=== PATIENT | male | born 1975 | race Caucasian/White ===

== ENCOUNTER 2017-07-26 08:42 | Inpatient (IN) | payer OTHER ==
[~2017-07-26] VITALS: Ht 180.3 cm; Wt 81.8 kg
[2017-07-26] VITALS (7 sets, daily range): BP systolic 96–144; BP diastolic 51–83; PULSE 57–148; RESP 14–18; TEMP 97.8–99.2; O2SAT 95–98
[~2017-07-26 08:42] MED LIST: CELE20TA PO; META800 PO; SIMV20 PO; TAB-TAB PO; WELL200T OR
[2017-07-26] MEDS ORDERED: LEVE250 PO (08:49)
[2017-07-26] MEDS ORDERED: SODIUM CHLOR 0.9% 1000 ML INJ 1,000 ML IV ONE ×2 (09:00→12:00)
--- NOTE | 2017-07-26 09:00 | PD ---
HPI Chief Complaint: Altered Mental Status Time Seen by Provider: 08:49 Travel History International Travel<30 days: No Contact w/Intl Traveler<30days: No Traveled to known affect area: No History of Present Illness HPI 41-year-old male was brought in by EMS for altered mental status. Patient was staying with a friend last night and was drinking alcohol yesterday. Patient's friend found the patient EMS was called. Disoriented and standing in the kitchen this morning. Patient was brought to the ED for evaluation. Patient has history of seizure and on Keppra. No seizure activity was witnessed. Patient denies any headache. Patient denies any chest pain or shortness of breath. Patient denies abdominal pain. Patient denies any focal weakness or numbness extremity. Patient has no complaint now. Patient denies any illicit drug abuse. Patient denies any nausea vomiting. Patient denies any coughing congestion. Patient denies any fever chills. 9:55 AM. Patient's mother call. Patient's mother states the patient is going through a divorce. Patient told his mother that he took 30 sleeping pills last night. Patient voiced suicidal ideation to his mother. 11:47 AM. Patient's ex- and patient's mother came to see the patient. Patient is on Keppra for seizure, Cymbalta for depression, simvastatin for hyperlipidemia and a medication for hypertension. Patient apparently took 30 pills of zolpidem unknown strength last night. PFSH Past Medical History Depression: Yes Cardiovascular Problems: No Genitourinary: No Musculoskeletal: No Neurologic: No Psychiatric: Yes Reproductive: No Respiratory: No Triglycerides - High: Yes (ON ZOCOR) Past Surgical History Other Surgery: No Social History Alcohol Use: Yes (daily.....beer) Tobacco Use: Yes (ppd) Substance Use: Yes (Currently ETOH is a problem; States Hx experimentation. ) Allergies-Medications (Allergen,Severity, Reaction): Coded Allergies: No Known Allergies (Verified Adverse Reaction, Unknown, 07/26/17) Reported Meds & Prescriptions Reported Meds & Active Scripts Active Reported Keppra (Levetiracetam) 250 Mg Tab 250 Mg PO BID Review of Systems General / Constitutional: No: Fever Eyes: No: Visual changes HENT: No: Headaches Cardiovascular: No: Chest Pain or Discomfort Respiratory: No: Shortness of Breath Gastrointestinal: No: Abdominal Pain Genitourinary: No: Dysuria Musculoskeletal: No: Pain Skin: No Rash Neurologic: No: Weakness Psychiatric: No: Depression Endocrine: No: Polydipsia Hematologic/Lymphatic: No: Easy Bruising Physical Exam Narrative GENERAL: Well-nourished, well-developed patient. SKIN: Focused skin assessment warm/dry. HEAD: Normocephalic. EYES: No scleral icterus. No injection or drainage. Mucous membrane is dry. NECK: Supple, trachea midline. No JVD or lymphadenopathy. CARDIOVASCULAR: Tachycardia rate and rhythm without murmurs, gallops, or rubs. RESPIRATORY: Breath sounds equal bilaterally. No accessory muscle use. GASTROINTESTINAL: Abdomen soft, non-tender, nondistended. MUSCULOSKELETAL: No cyanosis, or edema. BACK: Nontender without obvious deformity. No CVA tenderness. Neurologic exam: Patient is lethargic however answer questions appropriately. Patient moves all extremity well. No obvious focal neurologic deficit. Data Data Last Documented VS Vital Signs Date Time Temp Pulse Resp B/P (MAP) Pulse Ox O2 Delivery O2 Flow Rate FiO2 07/26/17 10:15 104 14 140/79 (99) 95 Room Air 07/26/17 08:45 98.4 Orders Orders Electrocardiogram (07/26/17 08:49) Complete Blood Count With Diff (07/26/17 08:49) Comprehensive Metabolic Panel (07/26/17 08:49) Creatine Kinase (Cpk) (07/26/17 08:49) Prothrombin Time / Inr (Pt) (07/26/17 08:49) Act Partial Throm Time (Ptt) (07/26/17 08:49) Urinalysis - C+S If Indicated (07/26/17 08:49) Thyroid Stimulating Hormone (07/26/17 08:49) Chest, Single Ap (07/26/17 08:49) Ct Brain W/O Iv Contrast(Rout) (07/26/17 08:49) Iv Access Insert/Monitor (07/26/17 08:49) Ecg Monitoring (07/26/17 08:49) Oximetry (07/26/17 08:49) Drug Screen, Random Urine (07/26/17 08:49) Alcohol (Ethanol) (07/26/17 08:49) Sodium Chlor 0.9% 1000 Ml Inj (Ns 1000 M (07/26/17 09:00) CKMB (07/26/17 09:15) CKMB% (07/26/17 09:15) Labs Laboratory Tests Test 07/26/17 09:15 07/26/17 11:15 White Blood Count 12.6 TH/MM3 Red Blood Count 4.46 MIL/MM3 Hemoglobin 14.4 GM/DL Hematocrit 41.3 % Mean Corpuscular Volume 92.7 FL Mean Corpuscular Hemoglobin 32.4 PG Mean Corpuscular Hemoglobin Concent 35.0 % Red Cell Distribution Width 11.8 % Platelet Count 499 TH/MM3 Mean Platelet Volume 8.5 FL Neutrophils (%) (Auto) 76.3 % Lymphocytes (%) (Auto) 16.5 % Monocytes (%) (Auto) 4.4 % Eosinophils (%) (Auto) 0.2 % Basophils (%) (Auto) 2.6 % Neutrophils # (Auto) 9.6 TH/MM3 Lymphocytes # (Auto) 2.1 TH/MM3 Monocytes # (Auto) 0.6 TH/MM3 Eosinophils # (Auto) 0.0 TH/MM3 Basophils # (Auto) 0.3 TH/MM3 CBC Comment DIFF FINAL Differential Comment Prothrombin Time 10.4 SEC Prothromb Time International Ratio 1.0 RATIO Activated Partial Thromboplast Time 24.5 SEC Blood Urea Nitrogen 16 MG/DL Creatinine 1.20 MG/DL Random Glucose 117 MG/DL Total Protein 7.7 GM/DL Albumin 4.2 GM/DL Calcium Level 8.5 MG/DL Alkaline Phosphatase 74 U/L Aspartate Amino Transf (AST/SGOT) 22 U/L Alanine Aminotransferase (ALT/SGPT) 36 U/L Total Bilirubin 0.4 MG/DL Sodium Level 137 MEQ/L Potassium Level 3.4 MEQ/L Chloride Level 101 MEQ/L Carbon Dioxide Level 25.3 MEQ/L Anion Gap 11 MEQ/L Estimat Glomerular Filtration Rate 66 ML/MIN Total Creatine Kinase 340 U/L Creatine Kinase MB 1.7 NG/ML Creatine Kinase MB % 0.5 % Thyroid Stimulating Hormone 3rd Gen 1.940 uIU/ML Ethyl Alcohol Level 96 MG/DL Urine Collection Type CLEAN CATCH Urine Color YELLOW Urine Turbidity CLEAR Urine pH 6.0 Urine Specific [place] 1.010 Urine Protein NEG mg/dL Urine Glucose (UA) NEG mg/dL Urine Ketones NEG mg/dL Urine Occult Blood MOD Urine Nitrite NEG Urine Bilirubin NEG Urine Urobilinogen 0.2 MG/DL Urine Leukocyte Esterase NEG Urine RBC 10-14 /hpf Urine Squamous Epithelial Cells 0-5 /hpf Microscopic Urinalysis Comment CULT NOT INDICATED Urine Collection Time 11:15 Urine Barbiturates Screen NEG Urine Amphetamines Screen NEG Urine Cocaine Screen NEG Urine Cannabinoids Screen NEG MDM Medical Decision Making Medical Screen Exam Complete: Yes Emergency Medical Condition: Yes Interpretation(s) 11:36 AM. Last Impressions Head CT 07/26/17848 Signed Impressions: Service Date/Time: Wednesday, July 26, 2017 09:01 - CONCLUSION: Normal examination. Vicente Li MD Chest X-Ray 07/26/17848 Signed Impressions: Service Date/Time: Wednesday, July 26, 2017 08:56 - CONCLUSION: Normal examination. Vicente Li MD 11:36 AM. EKG shows sinus tachycardia rate 141. Nonspecific ST-T wave change. 11:36 AM. CBC WBC 12.6. Hemoglobin 14.5 hematocrit 41.3. Platelet 499. 76 neutrophil. Potassium 3.4. Cardiac enzymes are normal. Total CK 340. Alcohol 96. UA is negative. Differential Diagnosis Differential diagnosis including substance induced mood disorder, seizure with postictal, electrolyte imbalance, dehydration, head injury. Narrative Course 41-year-old male with altered mental status. Patient was drinking alcohol yesterday. Patient told his mother that he overdosed on sleeping pill. Patient states that he was suicidal. History of seizure. Normal saline solution 2 L IV bolus. 11:47 AM. Patient is medically cleared for psychiatric evaluation. Patient will be transferred to the main hospital for psychiatric evaluation. Harrison Camarillo MD Jul 26, 2017 09:00
--- NOTE | 2017-07-26 09:12 | RADRPT ---
EXAM DATE/TIME: 07/26/2017 08:56 [facility] COMPARISON: No previous studies available for comparison. INDICATIONS : Short of breath. Altered mental status. MEDICAL HISTORY : Seizures. SURGICAL HISTORY : None. ENCOUNTER: Initial ACUITY: 2 days PAIN SCORE: 0/10 LOCATION: chest FINDINGS: A single view of the chest demonstrates the lungs to be symmetrically aerated without evidence of mas s, infiltrate or effusion. The cardiomediastinal contours are unremarkable. Osseous structures are intact. CONCLUSION: Normal examination. Vicente Li MD on July 26, 2017 at 9:09 Board Certified Radiologist. This report was verified electronically.
--- NOTE | 2017-07-26 09:21 | RADRPT ---
EXAM DATE/TIME: 07/26/2017 09:01 [facility] COMPARISON: CT BRAIN W/O CONTRAST, October 02, 2010, 4:22. INDICATIONS : Altered mental status. RADIATION DOSE: 39.94 CTDIvol (mGy) MEDICAL HISTORY : None SURGICAL HISTORY : None. ENCOUNTER: Initial ACUITY: 1 day PAIN SCALE: 0/10 LOCATION: cranial TECHNIQUE: Multiple contiguous axial images were obtained of the head. Using automated exposure control and adj ustment of the mA and/or kV according to patient size, radiation dose was kept as low as reasonably a chievable to obtain optimal diagnostic quality images. DICOM format image data is available electro nically for review and comparison. FINDINGS: CEREBRUM: The ventricles are normal for age. No evidence of midline shift, mass lesion, hemorrhage or acute in farction. No extra-axial fluid collections are seen. POSTERIOR FOSSA: The cerebellum and brainstem are intact. The 4th ventricle is midline. The cerebellopontine angle i s unremarkable. EXTRACRANIAL: The visualized portion of the orbits is intact. SKULL: The calvaria is intact. No evidence of skull fracture. CONCLUSION: Normal examination. Vicente Li MD on July 26, 2017 at 9:18 Board Certified Radiologist. This report was verified electronically.
[2017-07-26 09:36] LABS: AUTOMATED NEUTROPHIL # 9.6 TH/MM3 (1.8-7.7); BASOPHIL # 0.3 TH/MM3 (0-0.2); BASOPHIL % 2.6 % (0.0-2.0); EOSINOPHIL % 0.2 % (0.0-4.0); HEMATOCRIT 41.3 % (39.0-51.0); HEMOGLOBIN 14.4 GM/DL (13.0-17.0); LYMPH % 16.5 % (9.0-44.0); LYMPHOCYTE # 2.1 TH/MM3 (1.0-4.8); MEAN CELL VOLUME 92.7 FL (80.0-100.0); MEAN CORPUSCULAR HEMOGLOBIN 32.4 PG (27.0-34.0); MEAN PLATELET VOLUME 8.5 FL (7.0-11.0); MONO % 4.4 % (0.0-8.0); MONOCYTE # 0.6 TH/MM3 (0-0.9); NEUT % 76.3 % (16.0-70.0); PLATELET COUNT 499 TH/MM3 (150-450); RED BLOOD COUNT 4.46 MIL/MM3 (4.50-5.90); RED CELL DISTRIBUTION WIDTH 11.8 % (11.6-17.2); WHITE BLOOD COUNT 12.6 TH/MM3 (4.0-11.0)
[2017-07-26 09:39] LABS: PROTHROMBIN TIME - PATIENT 10.4 SEC (9.8-11.6)
[2017-07-26 09:54] LABS: CALCIUM 8.5 MG/DL (8.5-10.1)
[2017-07-26 09:55] LABS: ALBUMIN 4.2 GM/DL (3.4-5.0); BICARBONATE 25.3 MEQ/L (21.0-32.0); CHLORIDE 101 MEQ/L (98-107); GLUCOSE,RANDOM 117 MG/DL (74-106); SODIUM (NA) 137 MEQ/L (136-145)
[2017-07-26 09:58] LABS: ALT (GPT) 36 U/L (12-78); AST (GOT) 22 U/L (15-37); GLOMERULAR FILTRATION RATE 66 ML/MIN (>89)
[2017-07-26 09:59] LABS: TOTAL BILIRUBIN ADULT 0.4 MG/DL (0.2-1.0); TOTAL PROTEIN 7.7 GM/DL (6.4-8.2)
[2017-07-26 10:01] LABS: ALKALINE PHOSPHATASE 74 U/L (45-117)
[2017-07-26 10:05] LABS: BLOOD UREA NITROGEN 16 MG/DL (7-18)
[2017-07-26 11:20] LABS: BILIRUBIN, URINE NEG (NEG); BLOOD, URINE MOD (NEG); GLUCOSE,URINE NEG (NEG); KETONE, URINE NEG (NEG); NITRITE,URINE NEG (NEG); URINE COLOR YELLOW (YELLW/STRAW); URINE LEUKOCYTE ESTERASE NEG (NEG)
[2017-07-26 11:30] LABS: SQUAMOUS EPITHELIAL CELL URINE 0-5 /hpf (0-5)
[2017-07-26] MEDS ORDERED: SIMV5TAB3 PO (11:48)
[2017-07-26] MEDS ORDERED: DULO20 PO (11:48)
--- NOTE | 2017-07-26 13:12 | EKG ---
Date Performed: 07/26/2017 Time Performed: 08:48:25 PTAGE: 41 years EKG: SINUS TACHYCARDIA WITH SHORT [place] INTERVAL, POSSIBLE ATRIAL FLUTTER INCOMPLETE RIGHT BUNDLE B RANCH BLOCK NONSPECIFIC T-WAVE ABNORMALITY ABNORMAL RHYTHM ECG Compared to PREVIOUS TRACING rate is now faster, nonspecific ST T changes are now present PREVIOUS T RACIN08/25/2010 09.52 DOCTOR: Jermaine Cotto Interpretating Date/Time 07/26/2017 13:11:35
[2017-07-26] MEDS ORDERED: Cymbalta PO (16:50)
[2017-07-26] MEDS ORDERED: TEMA30CA PO (16:52)
[2017-07-26] MEDS ORDERED: LEVE500 PO (16:55)
[2017-07-26] MEDS ORDERED: LISI20TA3 PO (16:56)
[2017-07-26] MEDS ORDERED: AMLO10TA2 PO (16:57)
[2017-07-26] MEDS ORDERED: levETIRAcetam 500 MG TAB PO SCH (21:00)
[2017-07-27 02:32] VITALS: BP 135/77; PULSE 53; RESP 18; TEMP 98.4; O2SAT 97
[2017-07-27 06:48] VITALS: BP 129/63; PULSE 59; RESP 20; TEMP 96.9; O2SAT 98
[2017-07-27] MEDS ORDERED: LORazepam 0.5 MG TAB PO PRN (09:45)
[2017-07-27] MEDS ORDERED: LORazepam 2 MG/ML VIAL IM PRN ×2 (09:45)
[2017-07-27] MEDS ORDERED: MAGNESIUM HYDROXIDE SUSP 30 ML CUP PO PRN (09:45)
[2017-07-27] MEDS ORDERED: ALUMINUM/MAGNESIUM/SIMETH 30 ML CUP PO PRN (09:45)
--- NOTE | 2017-07-27 09:57 | HHI.HP ---
Provisional Diagnosis Admission Date [place] I. Adjustment disorder with depressed mood vs major depressive disorder, recurrent , severe, without psychosis, alcohol use disorder [place] II. Deferred [place] III. Hypertension Certification of Person's Competence To Provide Express and Informed Consent I have personally examined Seven BaileyJr , a person being served at [facility] on, Jul 27, 2017 09:41. Express and informed consent means consent voluntarily given in writing, by a competent person, after sufficient explanation and disclosure of the subject matter involved to enable the person to make a knowing and willful decision without any element of force, fraud, deceit, duress, or other form of constraint or coercion. This person is 18 years of age or older, is not now known to be incompetent to consent to treatment with a guardian advocate, and does not have a health care surrogate or proxy currently making medical treatment decisions. I have found this person to be one of the following: [] Competent to provide express and informed consent, as defined above, for voluntary admission to this facility and is competent to provide express and informed consent for treatment. He/she has the consistent capacity to make well reasoned, willful, and knowing decisions concerning his or her medical or mental health treatment. The person fully and consistently understands the purpose of the admission for examination/placement and is fully capable of personally exercising all rights assured [place] Incompetent to provide express and informed consent to voluntary admission, and this is incompetent to provide express and informed consent to treatment. The person must be transferred to involuntary status and a petition for a guardian advocate filed with the Circuit Court. [x] Refusing to provide express and informed consent to voluntary admission but is competent to provide express and informed consent for treatment. The person must be discharged or transferred to involuntary status. Form shall be completed within 24 hours of a person's arrival at the receiving facility and filed in the clinical record of each person: 1. Admitted on a voluntary basis 2. Permitted to provide express and informed consent to his/her own treatment 3. Allowed to transfer from involuntary to voluntary status 4. Prior to permitting a person to consent to his or her own treatment after having been previously found incompetent to consent to treatment. History of Present Illness Capacity: Has Capacity HPI The patient is a 41-year-old man, domiciled with a friend and [place], employed, but , with psychiatric history of depression , alcohol use disorder, 1 previous psychiatric hospitalization in 2011 here at [facility], documentation review, one suicide attempt by overdosing, he is on Cymbalta 60 mg daily prescribed by PCP, he has medical history of seizures and hypertension, who was brought in by EMS for altered mental status. Patient was staying with a friend last night and was drinking alcohol yesterday. Patient's friend found the patient EMS was called. Disoriented and standing in the kitchen this morning. Patient was brought to the ED for evaluation. No seizure activity was witnessed. 9:55 AM. Patient's mother call. Patient's mother states the patient is going through a divorce. Patient told his mother that he took 30 sleeping pills last night. Patient voiced suicidal ideation to his mother at 11:47 AM. Patient apparently took 30 pills of zolpidem unknown strength last night. On psychiatric evaluation today patient is calm, superficially cooperative. Patient reports that he has been very stressed going through divorce. He states that last night he was just very depressed, under the influence of alcohol, and he overdosed "just to go to sleep, but I was not thinking and to be honest". During the evaluation patient seems to be minimizing symptomatology of depression, he seems to be objectively depressed, with flat affect, tearful at some point of the interview. Patient is contributory at some point he states that he took 30 pills and minutes later he says that he took 4. At this moment the patient denies suicidal enemas ideation, he denies visual and auditory hallucinations. The patient is concrete , goal-directed, logical, coherent and relevant. The patient is oriented 3. He does report that in the past when he has been under stress he had overdosed. In 2010 after the of his father he feels hopeless, helpless, very sad and he overdose and ended hospitalized here at [facility]. The patient denies the use of illegal drugs, he reports that he uses alcohol occasionally. He denies withdrawal and DTs in the past, but at the same time he states that he is participating in AA meetings. Review of Systems Constitutional: DENIES: Diaphoretic episodes, Fatigue, Fever, Weight gain, Weight loss, Chills, Dizziness, Change in appetite, Night Sweats Endocrine: DENIES: Heat/cold intolerance, Polydipsia, Polyuria, Polyphagia Eyes: DENIES: Blurred vision, Diplopia, Eye inflammation, Eye pain, Vision loss , Photosensitivity, Double Vision Ears, nose, mouth, throat: DENIES: Tinnitus, Hearing loss, Vertigo, Nasal discharge, Oral lesions, Throat pain, Hoarseness, Ear Pain, Running Nose, Epistaxis, Sinus Pain, Toothache, Odynophagia Respiratory: DENIES: Apneas, Cough, Snoring, Wheezing, Hemoptysis, Sputum production, Shortness of breath Cardiovascular: DENIES: Chest pain, Palpitations, Syncope, Dyspnea on Exertion , PND, Lower Extremity Edema, Orthopnea, Claudication Gastrointestinal: DENIES: Abdominal pain, Black stools, Bloody stools, Constipation, Diarrhea, Nausea, Vomiting, Difficulty Swallowing, Anorexia Genitourinary: DENIES: Sexual dysfunction, Urinary frequency, Urinary incontinence, Urgency, Hematuria, Dysuria, Nocturia, Penile Discharge, Testicular Pain, Testicular Swelling Musculoskeletal: DENIES: Joint pain, Muscle aches, Stiffness, Joint Swelling, Back pain, Neck pain Integumentary: DENIES: Abnormal pigmentation, Nail changes, Pruritus, Rash Hematologic/lymphatic: DENIES: Bruising, Lymphadenopathy Immunologic/allergic: DENIES: Eczema, Urticaria Neurologic: DENIES: Abnormal gait, Headache, Localized weakness, Paresthesias, Seizures, Speech Problems, Tremor, Poor Balance Psychiatric: COMPLAINS OF: Suicidal Ideation, DENIES: Anxiety, Confusion, Mood changes, Depression, Hallucinations, Agitation, Homicidal Ideation, Delusions Past Psych History Violence risk - self (6 mos) Increased Substance Abuse History Drugs/Alcohol past 12 months Patient reports occasional use of alcohol, he participates in AA meetings, denies the use of illegal drug Past Family Social History Coded Allergies: No Known Allergies (Verified Adverse Reaction, Unknown, 07/26/17) Reported Medications Amlodipine (Amlodipine) 10 Mg Tab, 10 MG PO DAILY for Blood Pressure Management , #30 TAB 0 Refills 07/26/17 Lisinopril-Hctz (Lisinopril-Hctz) 20-25 Mg Tab, 1 TAB PO DAILY for Blood Pressure Management, #30 TAB 0 Refills 07/26/17 Levetiracetam (Keppra) 500 Mg Tab, 500 MG PO BID for Control Seizures, #60 TAB 0 Refills 07/26/17 Temazepam (Temazepam) 30 Mg Cap, 30 MG PO HS, #30 CAP 0 Refills 07/26/17 [Cymbalta ] No Conflict Check, 60 MG PO DAILY 07/26/17 Discontinued Reported Medications Simvastatin (Simvastatin) 5 Mg Tab, 0 PO DAILY for Cholesterol Management, #30 TAB 0 Refills 07/26/[address] (Cymbalta DR) 20 Mg Capdr, 0 PO DAILY, #30 CAP 0 Refills 07/26/17 Levetiracetam (Keppra) 250 Mg Tab, 250 MG PO BID for Control Seizures, #60 TAB 0 Refills 07/26/17 Current Medications Medications (Trade) Dose Ordered Sig/Boubacar Route Start Time Stop Time Status Last Admin (Norvasc) 10 mg DAILY PO 07/27/17 09:00 (Keppra) 500 mg Q12HR PO 07/26/17 21:00 07/26/17 21:00 (Restoril) 30 mg HS PRN PO 07/26/17 18:00 Family Psych History No family psychiatric history Social History Patient was born and raised [place], he lives in [place] with a friend , he is but , unemployed, his highest level of education is high school Patient's Strengths (min. 2) Verbal communication Physical Exam No tremors, no EPS, no withdrawal symptoms, no psychomotor agitation, some psychomotor retardation noted Vital Signs Vital Signs Date Time Temp Pulse Resp B/P (MAP) Pulse Ox O2 Delivery O2 Flow Rate FiO2 07/27/17 06:48 96.9 59 20 129/63 (85) 98 Room Air Lab Results Test 07/26/17 11:15 Urine Collection Type CLEAN CATCH Urine Color YELLOW Urine Turbidity CLEAR Urine pH 6.0 Urine Specific [place] 1.010 Urine Protein NEG mg/dL Urine Glucose (UA) NEG mg/dL Urine Ketones NEG mg/dL Urine Occult Blood MOD Urine Nitrite NEG Urine Bilirubin NEG Urine Urobilinogen 0.2 MG/DL Urine Leukocyte Esterase NEG Urine RBC 10-14 /hpf Urine Squamous Epithelial Cells 0-5 /hpf Microscopic Urinalysis Comment CULT NOT INDICATED Urine Collection Time 11:15 Urine Opiates Screen NEG Urine Barbiturates Screen NEG Urine Amphetamines Screen NEG Urine Benzodiazepines Screen NEG Urine Cocaine Screen NEG Urine Cannabinoids Screen NEG Mental Status Examination Appearance: Appropriate Consciousness: Alert Orientation: x4 Motor Activity: Normal gait Speech: Unremarkable Language: Adequate Fund of Knowledge: Adequate Attention and Concentration: Adequate Memory: Unremarkable Mood: Appropriate Affect: Appropriate Thought Process & Associations: Intact Thought Content: Appropriate Hallucination Type: None Delusion Type: None Suicidal Ideation: Yes Suicidal Plan: No Suicidal Intention: No Homicidal Ideation: No Homicidal Plan: No Homicidal Intention: No Insight: Poor Judgment: Poor Assessment & Plan Problem List: (1) Adjustment disorder with depressed mood ICD Codes: F43.21 - Adjustment disorder with depressed mood Assessment & Plan: On psychiatric evaluation I find a patient that is calm, just superficially cooperative, minimizing symptomatology of depression and recent suicide attempt, falling in contradictions regarding the amount of pills that he took to overdose. Patient reports that he has been very stressed, overwhelmed and depressed due to the process of divorce that he is going through. No collateral information could be contacted at this moment from his mother or ex-, who initiated the Elder act. Patient has history of depression, suicide attempts in the past in the context of being overwhelmed. Patient has an increased risk of danger to self at this moment he will be admitted for psychiatric stabilization and safety. We will restart his Cymbalta 60 mg, also restart his medication for seizures and hypertension, Keppra 500 mg twice daily, amlodipine 10 mg, lisinopril 20 mg. Patient will be transferred to 2700 unit. lithography contact worker intervention for psychosocial assessment, collateral information, individual and group therapies, also for the coordination of a safe discharge. Assessment & Plan Estimated LOS: Jose Luis Sherman MD Jul 27, 2017 09:57
[2017-07-27] MEDS ORDERED: ACETAMINOPHEN 325 MG TAB PO PRN (10:00)
[2017-07-27 10:15] VITALS: BP 154/76; PULSE 63; RESP 18; TEMP 98.2
[2017-07-27] MEDS ORDERED: CYMB60CA PO (10:29)
[2017-07-27] MEDS: NICOTINE 21 MG/24 HR PATCH T-DERMAL SCH (11:00)
[2017-07-27] MEDS: LISINOPRIL 20 MG TAB PO SCH (13:35)
[2017-07-27] MEDS: levETIRAcetam 500 MG TAB PO SCH ×2 (13:36→22:18)
[2017-07-27] MEDS: HYDROCHLOROTHIAZIDE 25 MG TAB PO SCH (13:46)
[2017-07-27 17:54] VITALS: BP 108/64; PULSE 63; RESP 18; TEMP 97.4; O2SAT 98
[2017-07-27] MEDS: TEMAZEPAM 15 MG CAP PO PRN (22:18)
[2017-07-28 06:13] VITALS: BP 125/73; PULSE 54; RESP 21; TEMP 98.4; O2SAT 98
[2017-07-28 07:24] LABS: BLOOD UREA NITROGEN 15 MG/DL (7-18); CALCIUM 8.6 MG/DL (8.5-10.1); CHLORIDE 105 MEQ/L (98-107); CHOLESTEROL 169 MG/DL (120-200); CREATININE 0.88 MG/DL (0.60-1.30); GLOMERULAR FILTRATION RATE 95 ML/MIN (>89); GLUCOSE,RANDOM 94 MG/DL (74-106); SODIUM (NA) 142 MEQ/L (136-145)
[2017-07-28 07:27] LABS: CHOLESTEROL/ HDL RATIO 3.02 RATIO; HDL CHOLESTEROL 55.8 MG/DL (40.0-60.0); LDL CHOLESTEROL 83 MG/DL (0-99); TRIGLYCERIDES 150 MG/DL (42-150)
[2017-07-28] MEDS: HYDROCHLOROTHIAZIDE 25 MG TAB PO SCH (08:54)
[2017-07-28] MEDS: levETIRAcetam 500 MG TAB PO SCH ×2 (08:54→21:13)
[2017-07-28] MEDS: NICOTINE 21 MG/24 HR PATCH T-DERMAL SCH (08:54)
[2017-07-28] MEDS: DULoxetine HCl DR 60 MG CAP PO SCH (08:54)
[2017-07-28] MEDS: LISINOPRIL 20 MG TAB PO SCH (08:54)
[2017-07-28] MEDS: LORazepam 1 MG TAB PO PRN (10:38)
--- NOTE | 2017-07-28 10:39 | HHI.PYPN ---
Subjective Remarks Reviewed electronic medical records discussed case with staff. Patient reports that he slept well has a good appetite. Denies suicidal or homicidal ideations and auditory or visual hallucinations. His mood is good his affect is euthymic. Mental Status Examination Appearance: Appropriate Consciousness: Alert Orientation: x4 Motor Activity: Normal gait Speech: Unremarkable Language: Adequate Fund of Knowledge: Adequate Attention and Concentration: Adequate Memory: Unremarkable Mood: Appropriate Affect: Appropriate Thought Process & Associations: Intact Thought Content: Appropriate Hallucination Type: None Delusion Type: None Suicidal Ideation: Yes Suicidal Plan: No Suicidal Intention: No Homicidal Ideation: No Homicidal Plan: No Homicidal Intention: No Insight: Poor Judgment: Poor Results Labs Test 07/28/17 06:01 Blood Urea Nitrogen 15 MG/DL Creatinine 0.88 MG/DL Random Glucose 94 MG/DL Calcium Level 8.6 MG/DL Sodium Level 142 MEQ/L Potassium Level 3.8 MEQ/L Chloride Level 105 MEQ/L Carbon Dioxide Level 29.0 MEQ/L Anion Gap 8 MEQ/L Estimat Glomerular Filtration Rate 95 ML/MIN Triglycerides Level 150 MG/DL Cholesterol Level 169 MG/DL LDL Cholesterol 83 MG/DL HDL Cholesterol 55.8 MG/DL Cholesterol/HDL Ratio 3.02 RATIO Vitals/IOs Vital Signs Date Time Temp Pulse Resp B/P (MAP) Pulse Ox O2 Delivery O2 Flow Rate FiO2 07/28/17 06:13 98.4 54 21 125/73 (90) 98 07/27/17 06:48 Room Air Assessment & Plan Problem List: (1) Adjustment disorder with depressed mood ICD Codes: F43.21 - Adjustment disorder with depressed mood Assessment & Plan Estimated LOS: Continue with current treatment plan. Attending psychiatrist will reevaluate tomorrow. Days Justification for Cont. Inpt. Moving this patient to a lower level of care would likely result in decompensation. Tiffany Loaiza Jul 28, 2017 10:39
[2017-07-28 13:29] LABS: HEMOGLOBIN A1C 5.3 % (4.3-6.0)
[2017-07-28 17:41] VITALS: BP 120/68; PULSE 76; RESP 18; TEMP 97.6; O2SAT 98
[2017-07-28] MEDS: TEMAZEPAM 15 MG CAP PO PRN (21:13)
[2017-07-29 06:30] VITALS: BP 115/62; PULSE 57; RESP 17; TEMP 98; O2SAT 100
[2017-07-29] MEDS: levETIRAcetam 500 MG TAB PO SCH ×2 (09:00→21:09)
[2017-07-29] MEDS: LISINOPRIL 20 MG TAB PO SCH (09:00)
[2017-07-29] MEDS: DULoxetine HCl DR 60 MG CAP PO SCH (09:00)
[2017-07-29] MEDS: HYDROCHLOROTHIAZIDE 25 MG TAB PO SCH (09:00)
[2017-07-29] MEDS: NICOTINE 21 MG/24 HR PATCH T-DERMAL SCH (09:00)
--- NOTE | 2017-07-29 09:32 | PD.TTN ---
Patient Problems 1. Discharge planning 2. Medication compliance 3. Knowledge deficit 4. Lack of coping skills Progress Toward Goals Provider Present: Dr. Alcides Dimas Provider Input: New pt, will see this am. Psychiatric Counselors Present: Nish Prasad Jr., [facility] Psych Therapist Input: Pt presents as "minimizing" signficant social issues including recent infedility on the part of his . Pt is at moderate to high risk for suicide and homocide. Staff needs to gather collateral before considering discharge. Nish Prasad Jr, [employer] SUPERVISOR Jul 29, 2017 09:32
[2017-07-29 15:12] VITALS: BP 107/67; PULSE 65; RESP 18; TEMP 99.1; O2SAT 100
[2017-07-29] MEDS: LORazepam 1 MG TAB PO PRN (16:53)
[2017-07-29] MEDS: TEMAZEPAM 15 MG CAP PO PRN (21:12)
--- NOTE | 2017-07-29 22:12 | PD.PSY.CON ---
Provisional Diagnosis Admission Date Jul 27, 2017 at 09:41 Yawkey I. Adjustment disorder with depressed mood vs major depressive disorder, recurrent , severe, without psychosis, alcohol use disorder Yawkey II. Deferred Yawkey III. Hypertension History of Present Illness Service Psychiatry Consult Requested By Dr. Frausto Reason for Consult Second opinion Primary Care Physician Unknown HPI The patient is a 41-year-old man, domiciled with a friend and [place], employed, but , with psychiatric history of depression , alcohol use disorder, 1 previous psychiatric hospitalization in 2010 here at [facility], documentation review, one suicide attempt by overdosing, he is on Cymbalta 60 mg daily prescribed by PCP, he has medical history of seizures and hypertension, who was brought in by EMS for altered mental status. Patient was staying with a friend last night and was drinking alcohol yesterday. Patient's friend found the patient EMS was called. Disoriented and standing in the kitchen this morning. Patient was brought to the ED for evaluation. No seizure activity was witnessed. 9:55 AM. Patient's mother call. Patient's mother states the patient is going through a divorce. Patient told his mother that he took 30 sleeping pills last night. Patient voiced suicidal ideation to his mother at 11:47 AM. Patient apparently took 30 pills of zolpidem unknown strength last night. On psychiatric evaluation today patient is calm, superficially cooperative. Patient reports that he has been very stressed going through divorce. He states that last night he was just very depressed, under the influence of alcohol, and he overdosed "just to go to sleep, but I was not thinking and to be honest". During the evaluation patient seems to be minimizing symptomatology of depression, he seems to be objectively depressed, with flat affect, tearful at some point of the interview. Patient is contributory at some point he states that he took 30 pills and minutes later he says that he took 4. At this moment the patient denies suicidal enemas ideation, he denies visual and auditory hallucinations. The patient is concrete , goal-directed, logical, coherent and relevant. The patient is oriented 3. He does report that in the past when he has been under stress he had overdosed. In 2010 after the of his father he feels hopeless, helpless, very sad and he overdose and ended hospitalized here at [facility]. The patient denies the use of illegal drugs, he reports that he uses alcohol occasionally. He denies withdrawal and DTs in the past, but at the same time he states that he is participating in AA meetings. 07/29/17 - Second opinion Patient is a 41 y/o man, domiciled with friend in [place], employed, , with a past psychiatric history of depression, alcohol use disorder, 1 previous psychiatric admission in 2010, 1 previous suicide attempt via overdose, past medical history significant for seizure disorder, hypertension, who was brought in due to altered mental status in the context of recent suicide attempt via overdose with 30 tablets of zolpidem which patient was admitted to the inpatient psychiatry unit for further evaluation and management. Patient was found sitting in hospital bed noted B, cooperative. Patient states that he did not try to attempt to commit suicide over that he wanted to sleep but was able to recall recent stressors to include having received a photograph of his with another man and states that it was this other person that had sent the patient to [facility] which had really upset him. Patient at this time states that he does not have any thoughts of wanting to hurt the other individual and states believing that this other man is no longer in his home or involved with his and has hopes of reconciling with and returning to back to his job soon. Patient was advised that patient will require further observation and adjustment of treatment due to recent suicide attempt which he acknowledged. Patient reports feeling well denies any physical complaints at this time denies any manic or psychotic symptoms, denies any perceptional disturbances or delusions. Information from staff reported that patient's [id number] had called to provide information stating that patient's continues to be in contact with the other individual, states that patient is likely unable to return back to work due to history of problems and is employed and states that patient's 's unlikely to return back to with the patient and is concerned about how patient would react or perceive current circumstances. Collateral contact: Khushbu Weber [phone] ([id number]) Past Family Social History Coded Allergies: No Known Allergies (Verified Allergy, Unknown, 07/27/17) Reported Medications Duloxetine DR (Cymbalta DR) 60 Mg Capdr, 60 MG PO DAILY, #30 CAP 0 Refills 07/27/17 Amlodipine (Amlodipine) 10 Mg Tab, 10 MG PO DAILY for Blood Pressure Management , #30 TAB 0 Refills 07/26/17 Lisinopril-Hctz (Lisinopril-Hctz) 20-25 Mg Tab, 1 TAB PO DAILY for Blood Pressure Management, #30 TAB 0 Refills 07/26/17 Levetiracetam (Keppra) 500 Mg Tab, 500 MG PO BID for Control Seizures, #60 TAB 0 Refills 07/26/17 Temazepam (Temazepam) 30 Mg Cap, 30 MG PO HS, #30 CAP 0 Refills 07/26/17 Discontinued Reported Medications Simvastatin (Simvastatin) 5 Mg Tab, 0 PO DAILY for Cholesterol Management, #30 TAB 0 Refills 07/26/[address] (Cymbalta DR) 20 Mg Capdr, 0 PO DAILY, #30 CAP 0 Refills 07/26/17 Levetiracetam (Keppra) 250 Mg Tab, 250 MG PO BID for Control Seizures, #60 TAB 0 Refills 07/26/17 Current Medications Medications (Trade) Dose Ordered Sig/Boubacar Route Start Time Stop Time Status Last Admin (Restoril) 30 mg HS PRN PO 07/26/17 18:00 07/29/17 21:12 (Ativan) 1 mg Q6H PRN PO 07/27/17 09:45 07/29/17 16:53 (Ativan Inj) 1 mg Q6H PRN IM 07/27/17 09:45 (Tylenol) 650 mg Q4H PRN PO 07/27/17 10:00 (Milk Of Magnesia Liq) 30 ml DAILY PRN PO 07/27/17 09:45 (Mag-Al Plus Susp Liq) 30 ml Q6H PRN PO 07/27/17 09:45 (Habitrol 21 Mg Patch.24 Hr) 1 patch DAILY T-DERMAL 07/27/17 11:00 07/29/17 09:00 (Norvasc) 10 mg DAILY PO 07/27/17 10:00 07/29/17 09:00 (Keppra) 500 mg BID PO 07/27/17 10:00 07/29/17 21:09 (Prinivil) 20 mg DAILY PO 07/27/17 11:00 07/29/17 09:00 (Cymbalta Dr) 60 mg DAILY PO 07/28/17 09:00 07/29/17 09:00 (Hydrodiuril) 25 mg DAILY PO 07/27/17 11:00 07/29/17 09:00 Patient's Strengths (min. 2) Verbal communication Physical Exam Vital Signs Vital Signs Date Time Temp Pulse Resp B/P (MAP) Pulse Ox O2 Delivery O2 Flow Rate FiO2 07/29/17 15:12 99.1 65 18 107/67 (80) 100 07/27/17 06:48 Room Air Mental Status Examination Appearance: Appropriate Consciousness: Alert Orientation: x4 Motor Activity: Normal gait Speech: Unremarkable Language: Adequate Fund of Knowledge: Adequate Attention and Concentration: Adequate Memory: Unremarkable Mood: Appropriate Affect: Appropriate Thought Process & Associations: Intact Thought Content: Appropriate Hallucination Type: None Delusion Type: None Suicidal Ideation: Yes Suicidal Plan: No Suicidal Intention: No Homicidal Ideation: No Homicidal Plan: No Homicidal Intention: No Insight: Poor Judgment: Poor Assessment & Plan Problem List: (1) Adjustment disorder with depressed mood ICD Codes: F43.21 - Adjustment disorder with depressed mood Assessment & Plan I have seen and examined this patient, reviewed the documentation, discussed personally with Dr. Frausto, and I agree and concur with his assessment and plan. Patient this time appears to be minimizing recent impact of current psychosocial stressors to include separation from , romantically involved with another individual. We will continue to monitor mood and behavior , continue current treatment. Treatment team to continue to obtain more collateral information from patient's . Discharge planning in progress. Patient's [id number], Khushbu Weber [phone] Discharge Planning To be determined. Chester Dimas MD Jul 29, 2017 22:12
[2017-07-30 05:58] VITALS: BP 104/60; PULSE 54; RESP 17; TEMP 97.8; O2SAT 100
[2017-07-30 06:12] VITALS: BP 104/60; PULSE 54; RESP 17; TEMP 97.8; O2SAT 100
[2017-07-30] MEDS: NICOTINE 21 MG/24 HR PATCH T-DERMAL SCH ×2 (08:03→15:15)
[2017-07-30] MEDS: HYDROCHLOROTHIAZIDE 25 MG TAB PO SCH (08:03)
[2017-07-30] MEDS: LISINOPRIL 20 MG TAB PO SCH (08:03)
[2017-07-30] MEDS: levETIRAcetam 500 MG TAB PO SCH ×2 (08:03→21:13)
[2017-07-30] MEDS: DULoxetine HCl DR 60 MG CAP PO SCH (08:04)
[2017-07-30] MEDS: LORazepam 1 MG TAB PO PRN (15:18)
--- NOTE | 2017-07-30 17:31 | HHI.PYPN ---
Subjective Remarks Patient seen for follow-up, chart reviewed. Discussion with nursing staff reported that the patient compliant with medications, no behavioral issues. Patient was found in dayroom, calm and cooperative. Patient states that his mood has been "good", sleeping well, denies any suicidal or homicidal ideations. Patient states that he has no thoughts of wanting to harm the individual who recently had been involved with , stating "I'm not going to do anything, I'll just move on". Patient continues to endorse that he is able to return to work, stay with his friend and that he will work things out with his . When asked what he will do if things do not belt turner the way he would like he states that he will continue to work and save up for his own home. Collateral information obtained by theraipist from patient's stated that there is no ongoing reconciliation at this time. Review of Systems Except as stated in HPI: all other systems reviewed are Neg Mental Status Examination Appearance: Appropriate Consciousness: Alert Orientation: x4 Motor Activity: Normal gait Speech: Unremarkable Language: Adequate Fund of Knowledge: Adequate Attention and Concentration: Adequate Memory: Unremarkable Mood: Appropriate Affect: Appropriate Thought Process & Associations: Intact Thought Content: Appropriate Hallucination Type: None Delusion Type: None Suicidal Ideation: Yes Suicidal Plan: No Suicidal Intention: No Homicidal Ideation: No Homicidal Plan: No Homicidal Intention: No Insight: Poor Judgment: Poor Results Vitals/IOs Vital Signs Date Time Temp Pulse Resp B/P (MAP) Pulse Ox O2 Delivery O2 Flow Rate FiO2 07/30/17 06:12 97.8 54 17 104/60 (75) 100 07/27/17 06:48 Room Air Intake and Output 07/30/17 07/30/17 07/31/17 08:00 16:00 00:00 Intake Total 360 ml Balance 360 ml Assessment & Plan Problem List: (1) Adjustment disorder with depressed mood ICD Codes: F43.21 - Adjustment disorder with depressed mood Assessment & Plan Patient continues to deny and depressive symptoms and continues to minimize recent events. There is continued concern of the reality of his relationship with his in that he believes they are reconciling. Will continue to to monitor mood and behavior, continue current treatment. Discharge planning in progress. Justification for Cont. Inpt. At risk for further deompensation at lower level of care. Chester Dimas MD July 30, 2017 17:31
[2017-07-30 18:39] VITALS: BP 120/65; PULSE 89; RESP 18; TEMP 98.2; O2SAT 96
[2017-07-30] MEDS: TEMAZEPAM 15 MG CAP PO PRN (21:56)
[2017-07-31 06:20] VITALS: BP 120/58; PULSE 69; RESP 18; TEMP 97.6; O2SAT 99
[2017-07-31] MEDS: HYDROCHLOROTHIAZIDE 25 MG TAB PO SCH (09:32)
[2017-07-31] MEDS: LISINOPRIL 20 MG TAB PO SCH (09:32)
[2017-07-31] MEDS: levETIRAcetam 500 MG TAB PO SCH ×2 (09:32→21:11)
[2017-07-31] MEDS: DULoxetine HCl DR 60 MG CAP PO SCH (09:32)
[2017-07-31] MEDS: NICOTINE 21 MG/24 HR PATCH T-DERMAL SCH (09:32)
--- NOTE | 2017-07-31 13:19 | PD.TTN ---
Patient Problems 1. Discharge planning 2. Medication compliance 3. Knowledge deficit 4. Lack of coping skills Progress Toward Goals Provider Present: Dr. Alcides Dimas Provider Input: New pt, will see this am. 07/31 Pt continues to minimize, BA court tomorrow morning. Psychiatric Counselors Present: Nish Prasad Jr., [facility] Psych Therapist Input: Pt presents as "minimizing" signficant social issues including recent infedility on the part of his . Pt is at moderate to high risk for suicide and homocide. Staff needs to gather collateral before considering discharge. 07/31 Pt continues to downplay the severity of recent behaviors, and is in denial of his current relationship with his . Occupational Therapist Input: 07/31 Attends group Nish Prasad Jr, MIS SPECIALIST July 31, 2017 13:19
[2017-07-31] MEDS: LORazepam 1 MG TAB PO PRN (17:34)
[2017-07-31 17:54] VITALS: BP 122/58; PULSE 61; RESP 18; TEMP 97.1; O2SAT 99
[2017-07-31] MEDS: TEMAZEPAM 15 MG CAP PO PRN (21:12)
--- NOTE | 2017-07-31 22:18 | HHI.PYPN ---
Subjective Remarks Patient seen for follow up; chart reviewed. Discussion with nursing staff reported that the patient feeling better, regretful about recent suicide attempt. Patient was found participating in group, calm, cooperative with interview with promotion writer and counselor/therapist. Patient states that he spoke with his employer and will continue to have a job. He was proposed the recommendation of participating in sober living which he agreed with and mentioned wanting to inquire about this for some time. He reports having spoken to his recently which he states went well. He agrees to sober living and plans on contacting the facilities today. Review of Systems Except as stated in HPI: all other systems reviewed are Neg Mental Status Examination Appearance: Appropriate Consciousness: Alert Orientation: x4 Motor Activity: Normal gait Speech: Unremarkable Language: Adequate Fund of Knowledge: Adequate Attention and Concentration: Adequate Memory: Unremarkable Mood: Appropriate Affect: Appropriate Thought Process & Associations: Intact Thought Content: Appropriate Hallucination Type: None Delusion Type: None Suicidal Ideation: No Suicidal Plan: No Suicidal Intention: No Homicidal Ideation: No Homicidal Plan: No Homicidal Intention: No Insight: Fair Judgment: Impulsive Results Vitals/IOs Vital Signs Date Time Temp Pulse Resp B/P (MAP) Pulse Ox O2 Delivery O2 Flow Rate FiO2 07/31/17 17:54 97.1 61 18 122/58 (79) 99 Assessment & Plan Problem List: (1) Adjustment disorder with depressed mood ICD Codes: F43.21 - Adjustment disorder with depressed mood Assessment & Plan Patient with continued improvement of mood, denies any SI, agrees with sober living. Continue current treatment, continue to monitor mood and behavior. Discharge planning in progress. Justification for Cont. Inpt. At risk for further decompensation if at lower level of care. Discharge Planning Possible discharge to sober living facility. Chester Dimas MD July 31, 2017 22:18
[2017-08-01 05:30] VITALS: BP 116/57; PULSE 60; RESP 16; TEMP 97.7; O2SAT 98
[2017-08-01] MEDS: LISINOPRIL 20 MG TAB PO SCH (08:16)
[2017-08-01] MEDS: DULoxetine HCl DR 60 MG CAP PO SCH (08:16)
[2017-08-01] MEDS: HYDROCHLOROTHIAZIDE 25 MG TAB PO SCH (08:16)
[2017-08-01] MEDS: levETIRAcetam 500 MG TAB PO SCH (08:18)
[2017-08-01] MEDS ORDERED: CYMB60CA PO (08:26)
[2017-08-01] MEDS ORDERED: HYDR25TA5 PO (08:26)
[2017-08-01] MEDS ORDERED: AMLO10 PO (08:26)
[2017-08-01] MEDS ORDERED: LEVE500 PO (08:26)
[2017-08-01] MEDS ORDERED: TEMA30CA PO (08:26)
[2017-08-01] MEDS ORDERED: LISI-515 PO (08:26)
--- NOTE | 2017-08-01 22:58 | HHI.DS ---
Psychiatry Discharge Summary Inpatient Psychiatric care?: Yes Advance Directive: No Reason Not Provided: refused Mental Health AdvanceDirective: No Health Care Proxy: No Admission Admission Date Jul 27, 2017 at 09:41 Admission Diagnosis: (1) Adjustment disorder with depressed mood ICD Code: F43.21 - Adjustment disorder with depressed mood Brief History The patient is a 41-year-old man, domiciled with a friend and [place], employed, but , with psychiatric history of depression , alcohol use disorder, 1 previous psychiatric hospitalization in 2010 here at [facility], documentation review, one suicide attempt by overdosing, he is on Cymbalta 60 mg daily prescribed by PCP, he has medical history of seizures and hypertension, who was brought in by EMS for altered mental status. Patient was staying with a friend last night and was drinking alcohol yesterday. Patient's friend found the patient EMS was called. Disoriented and standing in the kitchen this morning. Patient was brought to the ED for evaluation. No seizure activity was witnessed. 9:55 AM. Patient's mother call. Patient's mother states the patient is going through a divorce. Patient told his mother that he took 30 sleeping pills last night. Patient voiced suicidal ideation to his mother at 11:47 AM. Patient apparently took 30 pills of zolpidem unknown strength last night. On psychiatric evaluation today patient is calm, superficially cooperative. Patient reports that he has been very stressed going through divorce. He states that last night he was just very depressed, under the influence of alcohol, and he overdosed "just to go to sleep, but I was not thinking and to be honest". During the evaluation patient seems to be minimizing symptomatology of depression, he seems to be objectively depressed, with flat affect, tearful at some point of the interview. Patient is contributory at some point he states that he took 30 pills and minutes later he says that he took 4. At this moment the patient denies suicidal enemas ideation, he denies visual and auditory hallucinations. The patient is concrete , goal-directed, logical, coherent and relevant. The patient is oriented 3. He does report that in the past when he has been under stress he had overdosed. In 2010 after the of his father he feels hopeless, helpless, very sad and he overdose and ended hospitalized here at [facility]. The patient denies the use of illegal drugs, he reports that he uses alcohol occasionally. He denies withdrawal and DTs in the past, but at the same time he states that he is participating in AA meetings. 07/29/17 - Second opinion Patient is a 41 y/o man, domiciled with friend in [place], employed, , with a past psychiatric history of depression, alcohol use disorder, 1 previous psychiatric admission in 2010, 1 previous suicide attempt via overdose, past medical history significant for seizure disorder, hypertension, who was brought in due to altered mental status in the context of recent suicide attempt via overdose with 30 tablets of zolpidem which patient was admitted to the inpatient psychiatry unit for further evaluation and management. Patient was found sitting in hospital bed noted B, cooperative. Patient states that he did not try to attempt to commit suicide over that he wanted to sleep but was able to recall recent stressors to include having received a photograph of his with another man and states that it was this other person that had sent the patient to [facility] which had really upset him. Patient at this time states that he does not have any thoughts of wanting to hurt the other individual and states believing that this other man is no longer in his home or involved with his and has hopes of reconciling with and returning to back to his job soon. Patient was advised that patient will require further observation and adjustment of treatment due to recent suicide attempt which he acknowledged. Patient reports feeling well denies any physical complaints at this time denies any manic or psychotic symptoms, denies any perceptional disturbances or delusions. Information from staff reported that patient's [id number] had called to provide information stating that patient's continues to be in contact with the other individual, states that patient is likely unable to return back to work due to history of problems and is employed and states that patient's 's unlikely to return back to with the patient and is concerned about how patient would react or perceive current circumstances. Collateral contact: Khushbu Weber [phone] ([id number]) Tobacco Use In Past 30 Days: No Tobacco Past 30 Days Alcohol Use: 2-4 Times Per Month Hospital Course The patient is a 41-year-old man, domiciled with a friend and [place], employed, but , with psychiatric history of depression , alcohol use disorder, 1 previous psychiatric hospitalization in 2010 here at [facility], documentation review, one suicide attempt by overdosing, he is on Cymbalta 60 mg daily prescribed by PCP, he has medical history of seizures and hypertension, who was brought in by EMS for altered mental status. Patient re- started on duloxetine 60mg daily which he tolerated well with no notable adverse drug reactions. Patient was noted to minimize recent suicide attempt but throughout admission was able to start to process his depression as well. Patient denied having any suicidal or homicidal ideation stating that he was upset and intoxicated at the time of the suicide attempt. He was observed by staff to not have had any behavioral disturbances, not having made any suicidal or homicidal statements and maintained stable mood through admission and was noted to participate with staff adequately. Patient was noted to participate in many groups and activities, engaging with staff and not noted to be internally preoccupied or responding to internal stimuli as per observation of behavior during hospitalization. Patient reported feeling more hopeful, future oriented and motivated to engage in sober living and continue his employ. Treatment team was able to refer patient to sober living facility which he would be discharged to. Upon discharge patient stated that he was feeling good , reported being motivation to continue recommendations and denied any SI, HI, perceptual disturbances or delusions. Weighing the acute, chronic, and protective factors and based on the available evidence, I propulsion engineer to a reasonable degree of medical certainty that the patient is at low imminent risk of harm to self or others from a mental illness as defined under the Elder act and his level of function is adequate as observed on the unit for planned level of outpatient care. He was counseled regarding warning signs for need to return to the psychiatric emergency room as part of a general safety plan. Patient advised to call 911 or go nearest ED in case of emergency. Patient agreed with plan. Results Blood Pressure 116 / 57 Vital Signs Date Time Temp Pulse Resp B/P (MAP) Pulse Ox O2 Delivery O2 Flow Rate FiO2 08/01/17 05:30 97.7 60 16 116/57 (76) 98 Laboratory Results Test 07/28/17 06:01 Cholesterol Level 169 MG/DL (120-200) HDL Cholesterol 55.8 MG/DL (40.0-60.0) Hemoglobin A1c 5.3 % (4.3-6.0) LDL Cholesterol 83 MG/DL (0-99) Triglycerides Level 150 MG/DL (42-150) Summary of Procedures none Imaging Last Impressions Head CT 07/26/1749 Signed Impressions: Service Date/Time: Wednesday, July 26, 2017 09:01 - CONCLUSION: Normal examination. Vicente Li MD Chest X-Ray 07/26/1749 Signed Impressions: Service Date/Time: Wednesday, July 26, 2017 08:56 - CONCLUSION: Normal examination. Vicente Li MD Pending results at discharge: No Medications # of Antipsychotic meds at D/C: 0 Approp Antipsych med options 1 - Minimum of three failed multiple trials of monotherapy. 2 - Documented plan to taper to monotherapy due to previous use of multiple meds OR cross-taper in progress at D/C. 3 - Documentation of augmentation of Clozapine. 4 - Justification other than those listed in allowable values 1-3, document here : Discharge Discharge Date: August 01, 2017 Discharge Diagnosis: (1) Adjustment disorder with depressed mood ICD Code: F43.21 - Adjustment disorder with depressed mood Pt Condition on Discharge: Stable Discharge Disposition: Discharge Home Discharge Instructions Diet Instructions: As Tolerated, No Restrictions Activities you can perform: Regular-No Restrictions Scheduled Appointment: Ned Thomson Appointment Date: August 01, 2017 Appointment Time: 8 - 3 Discharge Time > 30 minutes Mental Status Examination Appearance: Appropriate Consciousness: Alert Orientation: x4 Motor Activity: Normal gait Speech: Unremarkable Language: Adequate Fund of Knowledge: Adequate Attention and Concentration: Adequate Memory: Unremarkable Mood: Appropriate Affect: Appropriate Thought Process & Associations: Intact Thought Content: Appropriate Hallucination Type: None Delusion Type: None Suicidal Ideation: No Suicidal Plan: No Suicidal Intention: No Homicidal Ideation: No Homicidal Plan: No Homicidal Intention: No Insight: Fair Judgment: Impulsive Discharge/Advance Care Plan Health Problems: (1) Adjustment disorder with depressed mood Goals to promote your health * To prevent worsening of your condition and complications * To maintain your health at the optimal level Directions to meet your goals Take your medications as prescribed Follow your dietary instruction Follow activity as directed Keep your appointments as scheduled Take your immunizations and boosters as scheduled If your symptoms worsen call your PCP, if no PCP go to Urgent Care Center or Emergency Room For 22/10 questions related to your inpatient stay or results of tests pending at discharge, please contact Dr. Chester Dimas at Smoking is Dangerous to Your Health. Avoid second hand smoking Chester Dimas MD August 01, 2017 22:58
== END 2017-08-01 09:00 | disposition home or self-care (01) | DRG 881 ==
LOC: PHED 08:42 → PHEDA 07-27 09:41 → H270 07-27 10:15 → H260 07-30 10:40
PROVIDERS: ADMIT Student in an Organized Health Care Education/Training Program; ATTEND Student in an Organized Health Care Education/Training Program
DX: F43.21 Adjustment disorder with depressed mood (principal); G40.909 Epilepsy, unspecified, not intractable, without status epilepticus; I10 Essential (primary) hypertension; T42.6X2A Poisoning by other antiepileptic and sedative-hypnotic drugs, intentional self-harm, initial encounter; R41.82 Altered mental status, unspecified; E78.5 Hyperlipidemia, unspecified; R00.0 Tachycardia, unspecified; F10.10 Alcohol abuse, uncomplicated; F17.210 Nicotine dependence, cigarettes, uncomplicated; Z91.5 Personal history of self-harm
CPT/HCPCS: 70450; 71045; 80048; 80053; 80061; 80307; 81001; 82550; 82552; 83036; 84443; 85025; 85610; 85730; 93005; 96360; 96361; J7030